=== PATIENT | male | born 1975 | race Two or more races ===

== ENCOUNTER 2019-06-30 15:30 | Inpatient (IN) ==
[2019-06-30 16:55] LABS: Basophils # 0.1 10*3/uL (0.0-0.2); Basophils % 0.4 % (0.0-0.8); Eosinophils # 0.5 10*3/uL (0.0-0.87); Hematocrit 36.2 VOL% (42.0-52.0); Hemoglobin 12.4 GM/DL (14.0-18.0); Immature Granulocytes % 0.7 %; Immature Granulocytes Absolute 0.09 #; Lymphocytes % 14.7 % (21.2-54.2); Mean Corpuscular HGB Conc 34.3 GM/DL (32-36); Mean Corpuscular Volume 78.5 FL (87-102); Mean Platelet Volume 9.3 FL (9.6-12.0); Monocytes % 9.5 % (1.7-12.7); Neutrophils % 70.7 % (38.7-73.9); Platelet Count 290 T/CUMM (130-400); Red Blood Count 4.61 MC/CUMM (3.8-5.5); Red Cell Distribution Width 12.4 % (9.3-17.3); White Blood Count 13.4 T/CUMM (4-12)
[2019-06-30 17:04] LABS: PT Patient Result 10.6 SECS (9.6-12.2)
[2019-06-30 17:19] LABS: Alanine Aminotransferase 26 U/L (16-61); Albumin 3.3 G/DL (3.4-5.0); Alkaline Phosphatase 152 U/L (45-117); Aspartate Amino Transferase 18 U/L (0-37); Blood Urea Nitrogen 11 MG/DL (7-18); Calcium 8.9 MG/DL (8.5-10.1); Glucose 188 MG/DL (74-106); Osmolality,Calculated 260.1 MOS/KG (273-304); Total Protein 7.5 G/DL (6.4-8.3)
[2019-06-30] MEDS ORDERED: ACETAMINOPHEN 325 MG TABLET PO PRN (18:11)
[2019-06-30] MEDS ORDERED: ONDANSETRON 4 MG/2 ML VIAL IV PRN (18:11)
[2019-06-30] MEDS ORDERED: NICOTINE 21 MG/24 HR PATCH TRANSDERM PRN (18:11)
[2019-06-30] MEDS ORDERED: DEXTROSE 10% 250 ML BAG IV PRN (18:31)
[2019-06-30] MEDS ORDERED: GLUCAGON 1 MG VIAL IM PRN (18:31)
[2019-06-30 19:14] LABS: Apearance,Urine CLEAR (Clear); Bilirubin,Urine Negative (Negative); Blood, Urine Negative (Negative); Glucose,Urine (UA) 150 mg/dL (Negative); Ketones,Urine Negative (Negative); Nitrite,Urine Negative (Negative); Protein,Urine Negative; RBC,Urine 2 /HPF (0-4); Urine Color Yellow (Yellow); Urine Specific Gravity 1.014 (1.001-1.035); Urine Urobilinogen < 2.0 EU/DL (0.2-1.0); WBC,Urine <1 /HPF (0-6)
[2019-06-30] MEDS: INSULIN LISPRO 100 UNIT/ML SUBCUT SCH (20:04)
[2019-06-30] MEDS: ATORVASTATIN 40 MG TABLET PO SCH (20:05)
[2019-06-30 21:03] LABS: Barbiturates Screen,Urine Negative (Negative); Benzodiazepines Screen,Urine Negative (Negative); Cannabinoid Screen,Urine Negative (Negative); Opiate Screen,Urine Negative (Negative); Phencyclidine Screen,Urine Negative (Negative)
[2019-07-01 01:32] LABS: Basophils # 0.1 10*3/uL (0.0-0.2); Basophils % 0.5 % (0.0-0.8); Eosinophils # 0.6 10*3/uL (0.0-0.87); Eosinophils % 5.4 % (0.00-10.9); Hematocrit 37.1 VOL% (42.0-52.0); Hemoglobin 12.7 GM/DL (14.0-18.0); Immature Granulocytes % 0.5 %; Immature Granulocytes Absolute 0.05 #; Lymphocytes # 2.4 10*3/uL (1.4-4.0); Lymphocytes % 22.1 % (21.2-54.2); Mean Corpuscular HGB Conc 34.2 GM/DL (32-36); Mean Corpuscular Volume 78.3 FL (87-102); Mean Platelet Volume 9.4 FL (9.6-12.0); Monocytes % 11.1 % (1.7-12.7); Neutrophils % 60.4 % (38.7-73.9); Platelet Count 305 T/CUMM (130-400); Red Blood Count 4.74 MC/CUMM (3.8-5.5); Red Cell Distribution Width 12.4 % (9.3-17.3); White Blood Count 10.9 T/CUMM (4-12)
[2019-07-01 02:00] LABS: Osmolality,Calculated 261.5 MOS/KG (273-304); Risk Ratio 3.68; Thyroid Stimulating Hormone 0.888 uIU/ml (0.358-3.74)
[2019-07-01] MEDS: INSULIN LISPRO 100 UNIT/ML SUBCUT SCH ×4 (08:25→21:21)
[2019-07-01] MEDS: CLOPIDOGREL 75 MG TABLET PO SCH (08:26)
[2019-07-01] MEDS: PANTOPRAZOLE 40 MG TABLET PO SCH (08:26)
[2019-07-01] MEDS: ASPIRIN EC 81 MG TABLET PO SCH (08:26)
[2019-07-01] MEDS: ATORVASTATIN 40 MG TABLET PO SCH (21:20)
[2019-07-02 05:04] LABS: Basophils # 0.1 10*3/uL (0.0-0.2); Basophils % 0.6 % (0.0-0.8); Eosinophils # 0.5 10*3/uL (0.0-0.87); Eosinophils % 4.5 % (0.00-10.9); Hematocrit 40.7 VOL% (42.0-52.0); Hemoglobin 13.5 GM/DL (14.0-18.0); Immature Granulocytes % 0.6 %; Immature Granulocytes Absolute 0.06 #; Lymphocytes # 2.3 10*3/uL (1.4-4.0); Lymphocytes % 21.6 % (21.2-54.2); Mean Corpuscular HGB Conc 33.2 GM/DL (32-36); Mean Corpuscular Volume 80.8 FL (87-102); Mean Platelet Volume 9.5 FL (9.6-12.0); Monocytes % 8.9 % (1.7-12.7); Neutrophils % 63.8 % (38.7-73.9); Platelet Count 330 T/CUMM (130-400); Red Blood Count 5.04 MC/CUMM (3.8-5.5); Red Cell Distribution Width 12.5 % (9.3-17.3); White Blood Count 10.8 T/CUMM (4-12)
[2019-07-02 05:25] LABS: Calcium 9.3 MG/DL (8.5-10.1); Osmolality,Calculated 264.7 MOS/KG (273-304)
[2019-07-02 07:55] VITALS: BP 159/88
[2019-07-02] MEDS: INSULIN LISPRO 100 UNIT/ML SUBCUT SCH (09:01)
[2019-07-02] MEDS: CLOPIDOGREL 75 MG TABLET PO SCH (09:01)
[2019-07-02] MEDS: PANTOPRAZOLE 40 MG TABLET PO SCH (09:01)
[2019-07-02] MEDS: ASPIRIN EC 81 MG TABLET PO SCH (09:01)
== END 2019-07-02 11:47 | disposition home or self-care (01) | DRG 65 ==
LOC: N.EDINP 15:30 → N.ED 15:30 → N.5E 18:29
PROVIDERS: ADMIT Internal Medicine; ATTEND Internal Medicine